=== PATIENT | female | born 1995 | race Two or more races ===

== ENCOUNTER 2016-04-18 19:34 | Emergency (ER) | payer OTHER ==
[2016-04-18] MEDS ORDERED: ONDANSETRON 4 MG/2ML 2 ML VIAL ONE ×2 (21:39→22:19)
[2016-04-18] MEDS ORDERED: LACTATED RINGERS 1,000 ML ONE (21:39)
[2016-04-18 21:40] LABS: SPECIFIC GRAVITY 1.025 (1.001-1.030); URINE BILIRUBIN NEGATIVE (NEGATIVE); URINE BLOOD NEGATIVE (NEGATIVE); URINE GLUCOSE (UA) NEGATIVE (NEGATIVE); URINE LEUKOCYTE ESTERASE TRACE (NEGATIVE); URINE NITRITE NEGATIVE (NEGATIVE); URINE PROTEIN TRACE (NEGATIVE); URINE UROBILINOGEN NORMAL (0-1 mg/dl)
[2016-04-18 21:42] LABS: URINE APPEARANCE CLEAR; URINE COLOR DARK YELLOW
[2016-04-18 21:47] LABS: URINE AMORPHOUS SEDIMENT FEW; URINE BACTERIA 1+; URINE EPITHELIAL CELLS 0-2 /hpf; URINE MUCUS 3+; URINE RBC 0 /hpf; URINE WBC 0-2 /hpf
[2016-04-18 22:09] LABS: BASO % 0.4 % (0.2-1.0); EOS # 0.1 (0.0-0.5); EOS % 0.6 % (0.9-2.9); HEMATOCRIT 40.6 % (37.0-47.0); HEMOGLOBIN 13.6 gm/l (12.0-16.0); IMM NEUT% 0.2 % (0-1); LYMPH # 2.2 (1.0-4.8); LYMPH % 22.5 % (15-45); MEAN CELL VOLUME 85.3 fl (81.0-99.0); MEAN CORPUSCULAR HEMOGLOBIN 28.6 pg (27.0-31.0); MEAN CORPUSCULAR HGB CONC 33.5 g/dl (33.0-37.0); MEAN PLATELET VOLUME 12.3 fl (7.4-10.4); MONO # 0.5 (0.0-0.8); MONO % 5.4 % (4-12); NEUT % 70.9 % (43-75); PLATELET COUNT 237 K/mm3 (130-400); RED CELL DISTRIBUTION WIDTH 13.4 % (11.5-14.5)
[2016-04-18 22:27] LABS: ALB/GLOB RATIO 1.3 (>1.0); ALBUMIN 4.3 gm/dL (3.5-5.7); CALCIUM 9.6 mg/dL (8.6-10.3)
== END 2016-04-19 00:06 | disposition home or self-care (01) ==
LOC: ED 19:34
DX: O26.91 Pregnancy related conditions, unspecified, first trimester (principal); O21.9 Vomiting of pregnancy, unspecified; Z3A.00 Weeks of gestation of pregnancy not specified
CPT/HCPCS: 85025; 87086; 80053; 81001; 99283 ×2; 96376; 96374; 96361; J2405 ×2; J7120

== ENCOUNTER 2016-04-26 21:28 | Emergency (ER) | payer OTHER ==
[2016-04-26] MEDS ORDERED: DIPHENHYDRAMINE HCL 50 MG/1 ML VIAL ONE (22:53)
[2016-04-26] MEDS ORDERED: METOCLOPRAMIDE HCL 5 MG/ML 2ML VIAL ONE (22:53)
[2016-04-26] MEDS ORDERED: LACTATED RINGERS 1,000 ML ONE (22:54)
[2016-04-26 23:09] LABS: ABSOLUTE NEUTROPHIL COUNT 7.3 K/mm3 (1.8-7.7); BASO % 0.2 % (0.2-1.0); EOS % 0.1 % (0.9-2.9); HEMATOCRIT 37.7 % (37.0-47.0); HEMOGLOBIN 12.6 gm/l (12.0-16.0); IMM NEUT% 0.2 % (0-1); LYMPH # 1.6 (1.0-4.8); LYMPH % 16.7 % (15-45); MEAN CELL VOLUME 85.5 fl (81.0-99.0); MEAN CORPUSCULAR HEMOGLOBIN 28.6 pg (27.0-31.0); MEAN CORPUSCULAR HGB CONC 33.4 g/dl (33.0-37.0); MEAN PLATELET VOLUME 12.4 fl (7.4-10.4); MONO # 0.5 (0.0-0.8); MONO % 4.9 % (4-12); NEUT % 77.9 % (43-75); PLATELET COUNT 230 K/mm3 (130-400); RED CELL DISTRIBUTION WIDTH 13.2 % (11.5-14.5)
[2016-04-26 23:23] LABS: ALB/GLOB RATIO 1.5 (>1.0); ALBUMIN 4.2 gm/dL (3.5-5.7); CALCIUM 9.6 mg/dL (8.6-10.3); MAGNESIUM 1.8 mg/dL (1.9-2.7)
[2016-04-26 23:23] LABS: SPECIFIC GRAVITY 1.025 (1.001-1.030); URINE BILIRUBIN NEGATIVE (NEGATIVE); URINE BLOOD 1+ (NEGATIVE); URINE GLUCOSE (UA) NEGATIVE (NEGATIVE); URINE LEUKOCYTE ESTERASE 2+ (NEGATIVE); URINE NITRITE NEGATIVE (NEGATIVE); URINE PROTEIN 1+ (NEGATIVE); URINE UROBILINOGEN 1 mg/dL (0-1 mg/dl)
[2016-04-26 23:29] LABS: URINE APPEARANCE HAZY; URINE COLOR YELLOW
[2016-04-26 23:39] LABS: URINE BACTERIA RARE
[2016-04-26 23:40] LABS: URINE MUCUS 2+
[2016-04-26] MEDS ORDERED: MAGNESIUM SULFATE 1 G/100 ML 100 ML IV ONE (23:45)
[2016-04-27 00:19] LABS: URINE APPEARANCE CLEAR; URINE BILIRUBIN NEGATIVE (NEGATIVE); URINE BLOOD NEGATIVE (NEGATIVE); URINE COLOR AMBER; URINE GLUCOSE (UA) NEGATIVE (NEGATIVE); URINE LEUKOCYTE ESTERASE NEGATIVE (NEGATIVE); URINE NITRITE NEGATIVE (NEGATIVE); URINE PROTEIN 1+ (NEGATIVE); URINE UROBILINOGEN 1 mg/dL (0-1 mg/dl)
[2016-04-27 00:32] LABS: URINE BACTERIA 0; URINE MUCUS 1+; URINE RBC 0-2 /hpf
[2016-04-27] MEDS ORDERED: MAGNESIUM SULFATE 1 G/100 ML 100 ML IV ONE (00:42)
== END 2016-04-27 01:27 | disposition home or self-care (01) ==
LOC: ED 21:28
DX: O21.1 Hyperemesis gravidarum with metabolic disturbance (principal); E83.42 Hypomagnesemia; Z3A.08 8 weeks gestation of pregnancy
CPT/HCPCS: 83690; 85025; 80053; 83735; 81001 ×2; 96375 ×2; 99284 ×2; 96361; 96365; 51701; J1200; J3475 ×2; J2765; J7120

== ENCOUNTER 2016-04-28 15:29 | Emergency (ER) | payer OTHER ==
[2016-04-28 16:35] LABS: SPECIFIC GRAVITY 1.015 (1.001-1.030); URINE APPEARANCE CLOUDY; URINE BILIRUBIN NEGATIVE (NEGATIVE); URINE BLOOD NEGATIVE (NEGATIVE); URINE COLOR YELLOW; URINE GLUCOSE (UA) NEGATIVE (NEGATIVE); URINE LEUKOCYTE ESTERASE TRACE (NEGATIVE); URINE NITRITE NEGATIVE (NEGATIVE); URINE PROTEIN TRACE (NEGATIVE); URINE UROBILINOGEN 8 mg/dL (0-1 mg/dl)
[2016-04-28 16:37] LABS: HCG,QUALITATIVE URINE POSITIVE
[2016-04-28 16:44] LABS: URINE AMORPHOUS SEDIMENT 3+; URINE BACTERIA 0; URINE EPITHELIAL CELLS FEW /hpf; URINE RBC 0 /hpf; URINE WBC 0-1 /hpf
[2016-04-28] MEDS ORDERED: MORPHINE SULFATE 4 MG/ML SYRINGE ONE (18:11)
[2016-04-28] MEDS ORDERED: METOCLOPRAMIDE HCL 5 MG/ML 2ML VIAL ONE (18:11)
[2016-04-28 18:35] LABS: ABSOLUTE NEUTROPHIL COUNT 7.6 K/mm3 (1.8-7.7); BASO % 0.4 % (0.2-1.0); EOS % 0.4 % (0.9-2.9); HEMATOCRIT 39.1 % (37.0-47.0); HEMOGLOBIN 12.7 gm/l (12.0-16.0); IMM NEUT% 0.3 % (0-1); LYMPH # 2.4 (1.0-4.8); LYMPH % 22.5 % (15-45); MEAN CELL VOLUME 87.3 fl (81.0-99.0); MEAN CORPUSCULAR HEMOGLOBIN 28.3 pg (27.0-31.0); MEAN CORPUSCULAR HGB CONC 32.5 g/dl (33.0-37.0); MEAN PLATELET VOLUME 12.2 fl (7.4-10.4); MONO # 0.6 (0.0-0.8); MONO % 5.6 % (4-12); NEUT % 70.8 % (43-75); PLATELET COUNT 200 K/mm3 (130-400); RED CELL DISTRIBUTION WIDTH 13.5 % (11.5-14.5)
[2016-04-28 18:44] LABS: ALB/GLOB RATIO 1.5 (>1.0); ALBUMIN 4.4 gm/dL (3.5-5.7); CALCIUM 9.5 mg/dL (8.6-10.3)
--- NOTE | 2016-04-28 19:26 | US ---
Exam: Complete obstetric ultrasound less than 14 weeks COMPARISON: None INDICATION: Left adnexal tenderness, history of molar . Findings: Transabdominal and transvaginal obstetrical ultrasound less than 14 weeks was obtained. Real-time sonographic imaging demonstrated a single live intrauterine with a heart rate of 176 bpm. [place]-rump length of 1.6 cm correlates with a gestational age of 8 weeks 0 days and a sonographic RIGO of 12/08/2016. This is the same as clinical dating. Normal yolk sac is seen. Gestational sac is normal in contour and has a mean sac diameter of 3.4 cm. There is no significant perigestational hemorrhage. Left ovary measures 2.5 x 2.5 x 2.2 cm and is unremarkable. Blood flow is present within the left ovary. Right ovary was not visualized. There is no significant free fluid in cul-de-sac. IMPRESSION: 1. Single live intrauterine of approximately 8 weeks 0 days gestation with a heart rate of 176 bpm. Sonographic RIGO is 12/08/2016. 2. Left ovary is normal. 3. Right ovary was not visualized. Report was uploaded to the EMR at 1921 hours 04/28/2016.
== END 2016-04-28 19:56 | disposition home or self-care (01) ==
LOC: ED 15:29
DX: O26.891 Other specified pregnancy related conditions, first trimester (principal); R10.30 Lower abdominal pain, unspecified; Z3A.08 8 weeks gestation of pregnancy

== ENCOUNTER 2016-06-02 16:22 | Emergency (ER) | payer OTHER ==
[2016-06-02] MEDS ORDERED: ONDANSETRON 4 MG/2ML 2 ML VIAL ONE ×2 (16:53→19:27)
[2016-06-02] MEDS ORDERED: SODIUM CHLORIDE 0.9% 2,000 ML ONE (16:54)
[2016-06-02 17:30] LABS: ABSOLUTE NEUTROPHIL COUNT 12.7 K/mm3 (1.8-7.7); BASO % 0.1 % (0.2-1.0); HEMATOCRIT 35.4 % (37.0-47.0); HEMOGLOBIN 12.4 gm/l (12.0-16.0); IMM NEUT # 0.1 K/mm3 (0-0.2); IMM NEUT% 0.4 % (0-1); LYMPH # 1.3 (1.0-4.8); LYMPH % 8.9 % (15-45); MEAN CELL VOLUME 84.9 fl (81.0-99.0); MEAN CORPUSCULAR HEMOGLOBIN 29.7 pg (27.0-31.0); MEAN PLATELET VOLUME 12.1 fl (7.4-10.4); MONO # 0.9 (0.0-0.8); MONO % 6.1 % (4-12); NEUT % 84.5 % (43-75); PLATELET COUNT 268 K/mm3 (130-400); RED CELL DISTRIBUTION WIDTH 13.4 % (11.5-14.5)
[2016-06-02 18:23] LABS: ALB/GLOB RATIO 1.3 (>1.0); ALBUMIN 4.4 gm/dL (3.5-5.7); CALCIUM 10.7 mg/dL (8.6-10.3); MAGNESIUM 1.8 mg/dL (1.9-2.7)
[2016-06-02] MEDS ORDERED: Potassium Chloride ORAL SOLN 20 MEQ/15 ML UDCUP ONE ×2 (18:35→18:37)
[2016-06-02] MEDS ORDERED: MAGNESIUM SULFATE 1 G/100 ML 100 ML IV ONE (18:36)
[2016-06-02] MEDS ORDERED: POTASSIUM CHLORIDE 10MEQ/100ML 200 ML IV ONE (18:36)
[2016-06-02] MEDS ORDERED: SODIUM CHLORIDE 0.9% 1,000 ML ONE (19:38)
== END 2016-06-02 21:44 | disposition home or self-care (01) ==
LOC: ED 16:22
DX: O21.1 Hyperemesis gravidarum with metabolic disturbance (principal); E87.6 Hypokalemia; E83.42 Hypomagnesemia; Z3A.13 13 weeks gestation of pregnancy
CPT/HCPCS: 85025; 80053; 83735; 96375; 96376; 99284 ×2; 96361; 96365; 96366; 96367; J3475; J3480; J2405 ×2; J7030 ×2; A9270 ×2